=== PATIENT | female | born 1970 | race Caucasian/White ===

== ENCOUNTER 2017-03-04 07:41 | Emergency (ER) | payer BC ==
[~2017-03-04] VITALS: Ht 152.4 cm; Wt 61.4 kg
[~2017-03-04 07:41] MED LIST: KLONOPIN 0.5MG0.5 MG PO; MOTRIN 200200 MG/TAB PO; NORCO 325 MG-7.1 TAB PO; ROBAXIN 50500 MG/TAB PO; TOPAMAX50 MG PO; ZOLOFT 100MG100 MG PO
[2017-03-04 07:44] VITALS: TEMP 98.6
[2017-03-04] MEDS ORDERED: ASPIRIN 81M81 MG/TA2 PO (07:50)
[2017-03-04] MEDS ORDERED: LIPITOR 80MG80 MG PO (07:50)
[2017-03-04] MEDS ORDERED: ZESTRIL2.5 MG PO (07:51)
[2017-03-04] MEDS ORDERED: COREG 6.256.25 MG/TA PO (07:51)
[2017-03-04] MEDS ORDERED: NORCO 325 MG-51 TAB PO (08:56)
[2017-03-04 09:23] VITALS: BP 105/72; PULSE 79
== END 2017-03-04 09:35 | disposition home or self-care (01) ==
LOC: COL.ER 07:41
DX: S92.311A Displaced fracture of first metatarsal bone, right foot, initial encounter for closed fracture (principal); S92.331A Displaced fracture of third metatarsal bone, right foot, initial encounter for closed fracture; S90.412A Abrasion, left great toe, initial encounter; W07.XXXA Fall from chair, initial encounter; Y92.009 Unspecified place in unspecified non-institutional (private) residence as the place of occurrence of the external cause; Z23 Encounter for immunization
CPT/HCPCS: J1885

== ENCOUNTER 2017-03-19 17:09 | Emergency (ER) | payer BC ==
[~2017-03-19] VITALS: Ht 152.4 cm; Wt 59.1 kg
[~2017-03-19 17:09] MED LIST changes: +ASPIRIN 81M81 MG/TA2 PO; +COREG 6.256.25 MG/TA PO; +LIPITOR 80MG80 MG PO; +NORCO 325 MG-51 TAB PO; +ZESTRIL2.5 MG PO
[2017-03-19 17:13] VITALS: BP 133/70; PULSE 93; TEMP 98.3
[2017-03-19] MEDS ORDERED: ROXICODONE 55 MG/TAB PO (17:18)
[2017-03-19] MEDS ORDERED: NORCO 325 MG-51 TAB PO ×2 (17:18→18:08)
== END 2017-03-19 18:18 | disposition home or self-care (01) ==
LOC: COL.ER 17:09
DX: S92.311D Displaced fracture of first metatarsal bone, right foot, subsequent encounter for fracture with routine healing (principal); S92.331D Displaced fracture of third metatarsal bone, right foot, subsequent encounter for fracture with routine healing; X58.XXXD Exposure to other specified factors, subsequent encounter; I10 Essential (primary) hypertension; F17.200 Nicotine dependence, unspecified, uncomplicated; E78.5 Hyperlipidemia, unspecified

== ENCOUNTER → 2021-02-26 | Emergency (ER) | payer BC ==
[~2021-02-26] VITALS: Ht 152.4 cm; Wt 58.2 kg
[~2021-02-26] MED LIST changes: +CEPHALEXIN500 M1 PO; +PERCOCET 325 MG1 TA2 PO; +ROXICODONE 55 MG/TAB PO
[2021-02-26 21:17] VITALS: TEMP 97.7
[2021-02-27 00:02] VITALS: BP 124/70; PULSE 72
== END ==
LOC: COL.ER 20:59
DX: S62.632B Displaced fracture of distal phalanx of right middle finger, initial encounter for open fracture (principal); S61.212A Laceration without foreign body of right middle finger without damage to nail, initial encounter; F17.210 Nicotine dependence, cigarettes, uncomplicated; W23.0XXA Caught, crushed, jammed, or pinched between moving objects, initial encounter

== ENCOUNTER 2021-07-29 14:32 | Emergency (ER) | payer BC ==
[~2021-07-29] VITALS: Ht 152.4 cm; Wt 61.4 kg
[2021-07-29] MEDS ORDERED: PERCOCET 325 MG1 TA2 PO (18:00)
[2021-07-29] MEDS ORDERED: CEPHALEXIN500 M1 PO (18:01)
[2021-07-29 18:55] VITALS: BP 165/91; PULSE 78; TEMP 97.6
== END 2021-07-30 00:30 | disposition home or self-care (01) ==
LOC: COL.ER 14:32
DX: S92.411A Displaced fracture of proximal phalanx of right great toe, initial encounter for closed fracture (principal); I10 Essential (primary) hypertension; F17.210 Nicotine dependence, cigarettes, uncomplicated; Z79.899 Other long term (current) drug therapy; W06.XXXA Fall from bed, initial encounter

== ENCOUNTER 2023-09-25 08:56 | Day surgery (SDC) | payer BC ==
[~2023-09-25] VITALS: Ht 152.4 cm; Wt 57.1 kg
[~2023-09-25 08:56] MED LIST changes: +LR 1,000 ML IV SCH; +Ondansetron 4 MG/2 ML VIAL IV PRN
[2023-09-25] MEDS ORDERED: COREG 25MG25 MG/TAB PO (09:22)
[2023-09-25 10:20] VITALS: BP 126/79; PULSE 89; TEMP 97.3
--- NOTE | 2023-09-25 10:20 | NUR ---
PATIENT AMBULATED TO CHAIR WITH STEADY GAIT, ASSIST OF 2. ALERT AND AWAKE. DENIES PAIN, NAUSEA AND SHORTNESS OF BREATH. BREATHING REGULAR AND UNLABORED ON ROOM AIR. SKIN WARM AND DRY. IV IN PLACE. NURSE HANDOFF COMPLETED IN ROOM. SEE CHART FOR VITAL SIGNS. PATIENT HAD APPLE JUICE AND JELLO. BOTH TOLERATED WELL, NO DYSPHAGIA. CALL LIGHT IN REACH. SPOUSE, MICHAEL, PRESENT IN ROOM.
[2023-09-25 10:30] VITALS: BP 139/84; PULSE 77
[2023-09-25 10:45] VITALS: BP 151/77; PULSE 79
[2023-09-25 10:54] VITALS: BP 128/80; PULSE 70; TEMP 97.6
[2023-09-25 11:00] VITALS: BP 150/67; PULSE 80
--- NOTE | 2023-09-25 11:35 | NUR ---
1113: MET WITH PATIENT AND MICHAEL IN ROOM TO DISCUSS PROCEDURE. 1127: IV REMOVED. GAUZE AND COBAN PLACED OVER SITE. 1134: DISCHARGE TEACHING COMPLETED WITH PRINTED EDUCATION AND INSTRUCTIONS SENT HOME WITH PATIENT. PATIENT VERBALIZED UNDERSTANDING OF TEACHING. 1135: PATIENT DISCHARGED HOME WITH MICHAEL TRANSPORT.
== END 2023-09-25 11:35 | disposition home or self-care (01) ==
LOC: SDCO 08:56
DX: K29.50 Unspecified chronic gastritis without bleeding (principal); K21.00 Gastro-esophageal reflux disease with esophagitis, without bleeding; R13.10 Dysphagia, unspecified; R07.0 Pain in throat; R09.89 Other specified symptoms and signs involving the circulatory and respiratory systems; H92.01 Otalgia, right ear; F17.210 Nicotine dependence, cigarettes, uncomplicated
CPT/HCPCS: J2704; J7120

== ENCOUNTER → 2023-10-25 | Outpatient (CLI) | payer BC ==
[~2023-10-25] VITALS: Ht 152.4 cm; Wt 57.2 kg
[~2023-10-25] MED LIST changes: +COREG 25MG25 MG/TAB PO; -LR 1,000 ML IV SCH; -Ondansetron 4 MG/2 ML VIAL IV PRN
== END ==
LOC: DIET.CLI 09:55
DX: R13.10 Dysphagia, unspecified (principal); C32.1 Malignant neoplasm of supraglottis; Z68.24 Body mass index [BMI] 24.0-24.9, adult; R63.4 Abnormal weight loss

== ENCOUNTER 2023-11-08 05:33 | Day surgery (SDC) | payer BC ==
--- NOTE | 2023-11-07 11:31 | NUR ---
medical office worker recieved a call from [employer] regarding patient coming in tomorrow and will need feeding supplies. Home Health will be discussed as well.
[2023-11-08] VITALS (9 sets, daily range): BP systolic 107–147; BP diastolic 54–86; PULSE 66–93; TEMP 97.7–98.3
[~2023-11-08] VITALS: Ht 152.4 cm; Wt 55.2 kg
[~2023-11-08 05:33] MED LIST changes: +LR 1,000 ML IV SCH
[2023-11-08] MEDS ORDERED: fentaNYL 50 MCG/ML 2 ML VIAL ONE (06:42)
[2023-11-08] MEDS ORDERED: Ondansetron 4 MG/2 ML VIAL IV PRN (08:45)
[2023-11-08] MEDS ORDERED: Morphine 4 MG/ML VIAL IV PRN (08:45)
[2023-11-08] MEDS ORDERED: fentaNYL 50 MCG/ML 2 ML VIAL IV PRN (09:15)
[2023-11-08] MEDS ORDERED: NORCO 325 MG-51 TAB PO (10:01)
--- NOTE | 2023-11-08 10:57 | NUR ---
0846 Pt to [facility] bay [address], monitors attached. Intervals and alarms set, VSS on room air. Pt awake and alert, breathing well. Report received from ANSON and JOVANNY. Pt c/o intolerable pain and agrees to medication. Order received from JOVANNY Mehta for IV pain medication until pt able to tolerate PO meds. Pain treated per order. Food and drink provided. Warm blanket to abdomen and pt repositioned for comfort.
--- NOTE | 2023-11-08 11:34 | NUR ---
connection worker met with patient to verify some contact information. She lives in [place] and sees ELINA Quintero. Pt verified her phone number on file. SW discussed Home Health services to discuss education for the feeding tube. Pt declined this and states she feels competent, her and children will also be helping. SW was informed by [employer] Operator[employer]reia Varela that pt would like to utilize [facility]. SW emailed DME order to [facility]. SW informed RN that pt could pick up driver after 12pm. RN informed SW that pt discharged. SW called patient to inform her of the pick up driver time. Pt verbalized understanding. SW informed [facility].
--- NOTE | 2023-11-08 13:32 | NUR ---
0945 Pt alert and oriented x4, tolerating food and drink well. Reports that pain improving but still intolerable and request medication. Pain treated per orders. Dietary specialist declines to assist with PEG tube education, materials gathered and assistance requested from experience RN. 1030 Pt A&O, reports pain has improved to tolerable level. PEG tube education provided by RN and questions answered to pt and 's satisfaction. Education and instructions for procedures provided and all questions answered to satisfaction. IV removed without complication. Pt instructed to dress and call for assistance, at bedside. 1051 Pt transferred via wheel chair to personal vehicle to be driven home by .
== END 2023-11-08 10:51 | disposition home or self-care (01) ==
LOC: SDCO 05:33
DX: C32.1 Malignant neoplasm of supraglottis (principal); R63.4 Abnormal weight loss; Z45.2 Encounter for adjustment and management of vascular access device
CPT/HCPCS: C1788; J0690; J1644; J2704; J3010; J7120

== ENCOUNTER 2024-03-06 18:10 | Emergency (ER) | payer BC ==
[~2024-03-06] VITALS: Ht 152.4 cm; Wt 47.7 kg
[~2024-03-06 18:10] MED LIST changes: +COMPAZINE 110 MG/TAB PO; +FENTANYL 12MCG TD; +LOMOTIL 0.025 M1 TAB PO; -LR 1,000 ML IV SCH; +MAGIC MOUTH PO; +NEXIUM 20MG20 MG PO; +SODIUM CHLORI1000 M4 PO; +ZOFRAN8 MG PO
[2024-03-06 18:17] VITALS: TEMP 98.2
[2024-03-06] MEDS ORDERED: LR 1,000 ML IV ONE (19:00)
[2024-03-06 19:27] LABS: BASO % 0.3 % (0.0-2.0); EOS % 0.2 % (0.0-4.0); GRAN # 7.8 K/mm3 (1.4-6.5); GRAN % 82.3 % (42.2-75.2); LYMPH # 0.5 K/mm3 (1.2-3.4); LYMPH % 5.2 % (20.0-51.0); MEAN CELL VOLUME 96 fl (80.0-100.0); MEAN CORPUSCULAR HGB CONC 34 g/dl (33.0-37.0); MEAN PLATELET VOLUME 8.3 fl (7.4-10.4); MONO % 10.9 % (1.7-9.3); PLATELET COUNT 237 K/mm3 (130-400); RED BLOOD COUNT 2.46 M/mm3 (4.10-5.30); REDCELL DISTRIBUTION WIDTH-CV 16.2 % (11.5-14.5)
[2024-03-06 19:28] LABS: HEMATOCRIT 23.7 % (37.0-47.0); MEAN CORPUSCULAR HEMOGLOBIN 33 pg (27-31)
[2024-03-06 19:47] LABS: ALBUMIN 2.6 g/dL (3.5-5.0); BILIRUBIN,TOTAL 0.4 mg/dL (0.2-1.2); CALCIUM 9.5 mg/dL (8.4-10.2); CREATININE, serum 0.6 mg/dL (0.57-1.11); TOTAL PROTEIN 6.2 g/dl (6.2-8.1)
[2024-03-06] MEDS ORDERED: ZITHROMAX Z PA250 MG PO (19:53)
[2024-03-06] MEDS ORDERED: cefTRIAXone 1 G in Water For Injection,Sterile 10 ML IV ONE (20:00)
[2024-03-06 21:09] VITALS: BP 168/91; PULSE 79
== END 2024-03-06 21:09 | disposition home or self-care (01) ==
LOC: COL.ER 18:10
PROVIDERS: Family Medicine
DX: K56.41 Fecal impaction (principal)
CPT/HCPCS: J0696; J7120

== ENCOUNTER 2024-03-10 09:45 | Outpatient (RCR) | payer BC ==
[~2024-03-10 09:45] MED LIST changes: +ZITHROMAX Z PA250 MG PO
--- NOTE | 2024-03-21 11:33 | NUR ---
Patient with PEG placed October 2023 and originally ordered to take 5 cans of Jevity 1.5/day. Received consult from Dr. Norris's office on 02/26/24 regarding weight loss. Patient's reports patient unable to tolerate 5 cans of Jevity 1.5 and patient with some nausea and occasional emesis. They had tried to work in Ensure into her tube feeding regimen but still continued to lose weight and Ensure not adequate enough to meet nutritional needs. She did have an ER visit 03/06/24 with fecal impaction noted. She has since been taking daily miralax and stool softener and having regular BMs, not diarrhea. Despite regular BMs, still not tolerating Jevity 1.5 enough to prevent weight loss. On 02/19/24, patient with a weight of 49.6 kg at oncology office visit. reported that her weight on 03/14/24 was 45 kg. This is a 9% weight loss within less than 1 month. They did a trial of [employer] Standard 1.4 and reports patient tolerated and gaining some weight and would like to switch to this formula. Updated tube feeding recommendations of 1 can (11 oz) Mei Jianjian Standard 1.4, QID w/ 30 ml water flush before/after feeds. Give additional 150 ml free water flush TID throughout the day for additional hydration. This will provide approximately 1820 calories (116% of energy needs), 80 gm protein (118% of protein needs) and 1630 ml fluid including water flushes (109% of minimum fluid needs).
== END 2024-03-19 | disposition home or self-care (01) ==
LOC: WSST
DX: R13.12 Dysphagia, oropharyngeal phase (principal); C32.1 Malignant neoplasm of supraglottis

== ENCOUNTER 2024-04-03 10:00 | Outpatient (RCR) | payer BC | END 2024-04-19 | disposition home or self-care (01) | LOC: WSST | DX: R13.12 Dysphagia, oropharyngeal phase (principal); C32.1 Malignant neoplasm of supraglottis ==